=== PATIENT | female | born 1970 | race American Indian/Alaskan Native ===

== ENCOUNTER 2016-10-27 11:32 | Outpatient (CLI) | payer BC ==
--- NOTE | 2016-10-27 14:09 | Ultrasound Report ---
BILATERAL DIGITAL DIAGNOSTIC MAMMOGRAM and BILATERAL BREAST ULTRASOUND: 10/27/16 11:32:00 CLINICAL: Recalled for bilateral asymmetries and right calcifications. COMPARISON:08/05/16 screening FINDINGS: Left lateralmedial and spot compression MLO and CC views were performed and demonstrate persistent circumscribed upper asymmetries. ML and CC magnification views of the right breast were performed and demonstrate partial effacement of the previously described retroareolar asymmetry on the MLO view. Scattered punctate calcifications have benign morphology with no suspicious forms. Ultrasound of the right breast (including all four quadrants and the retroareolar area) was performed. A solid heterogeneous hypoechoic oval mass at 11 o'clock 5 cm from the nipple measures 1.4 x 0.6 x 1.3 cm and correlates with the asymmetry on the MLO view. An irregular intraductal mass is identified the retroareolar and measures 0.6 x 0.2 x 0.6 cm. A benign cyst at 8 o'clock 4 cm from the nipple measures 8 x 5 x 7 mm. A cluster of cysts at 9 o'clock 5 cm from the nipple measures 1.8 x 0.9 x 0.5 cm and contains a few calcifications. A benign cyst at 10 o'clock 6 cm from the nipple measures 1.0 x 0.6 x 1.5 cm. Ultrasound of the left breast (including all four quadrants and the retroareolar area) was performed and demonstrate three benign cysts and no solid mass. A septated cyst at 11 o'clock 4 cm from nipple measures 4.1 x 3.2 x 2.0 cm and correlates with the dominant mammographic density. A cyst at 12 o'clock 8 cm from the nipple measures 1.1 x 0.6 x 0.9 cm and a cyst at 11:30 o'clock 4 cm from the nipple measures 2.1 x 0.8 x 2.1 cm. IMPRESSION: 2 solid masses of the right breast. A smaller mass is intraductal and retroareolar and the larger mass is at 11 o'clock 5 cm from the nipple. Benign cysts of the left breast. BI-RADS CATEGORY: 4--Suspicious RECOMMENDATION: Ultrasound guided needle core biopsy of two right breast masses. I discussed the findings and the recommendation for needle core biopsy with the patient at the time of the examination. ACR BI-RADS MAMMOGRAPHIC CODES: 0 = Needs additional imaging evaluation; 1 = Negative; 2 = Benign; 3 = Probably benign; 4 = Suspicious; 5 = Malignant; 6 = Known biopsy-proven malignancy COMMENT: 1. Dense breast tissue, i.e., adenosis, fibrocystic changes, etc., may obscure an underlying neoplasm. 2. Approximately 10% of cancers are not detected with mammography. 3. A negative mammography report should not delay biopsy if a clinically suspicious mass is present. COMMENT: Patient follow-up letters are generated via our [employer] application.
== END 2016-10-27 11:33 | disposition home or self-care (01) ==
LOC: SPVWC 11:32
PROVIDERS: ATTEND Obstetrics & Gynecology
DX: N60.01 Solitary cyst of right breast (principal); N60.02 Solitary cyst of left breast; N63 Unspecified lump in breast
CPT/HCPCS: 76641; G0204; 77066

== ENCOUNTER 2016-11-08 08:39 | Outpatient (CLI) | payer BC ==
--- NOTE | 2016-11-08 10:40 | Mammography Report ---
RIGHT DIGITAL DIAGNOSTIC MAMMOGRAM: 11/08/16 08:39:00 CLINICAL: For clip placement immediately status post ultrasound biopsy at 2 sites. COMPARISON:10/27/16 FINDINGS: 2 biopsy clips correlate with the two biopsied lesions . IMPRESSION: Concordant clip placement status post ultrasound biopsy. BI-RADS CATEGORY: 4--Suspicious Pathology pending.
--- NOTE | 2016-11-08 11:19 | Ultrasound Report ---
VACUUM ASSISTED ULTRASOUND GUIDED NEEDLE CORE BIOPSY WITH CLIP PLACEMENT RETROAREOLAR RIGHT BREAST AND ULTRASOUND-GUIDED NEEDLE CORE BIOPSY 11 O'CLOCK RIGHT BREAST. : 11/08/16 08:39:00 CLINICAL: Retroareolar intraductal mass and a solid 1.4 cm mass at 11 o'clock 5 cm from the nipple. COMPARISON :10/27/16 FINDINGS: The procedure was explained to the patient and informed consent was obtained. Ultrasound demonstrated the previously described masses. The skin was prepped with chlorhexidine and anesthetized with 1% lidocaine. Ultrasound guided needle core biopsy was performed at 11 o'clock using 2% lidocaine with epinephrine for deep anesthesia and a 14-gauge Achieve biopsy device. Three cores were obtained and placed in formalin. A hydro-melba clip was placed within the mass. Vacuum-assisted retroareolar needle core biopsy was performed through a small dermatotomy using ultrasound guidance, 2% lidocaine with epinephrine for deep anesthesia and a 13-gauge Elite biopsy probe. Imaging demonstrated satisfactory sampling of the lesion. Multiple cores were obtained and placed in formalin. An 11-gauge Mammostar barbell shape clip was then placed at the site. Hemostasis was achieved with minimal pressure and a sterile dressings were applied. The patient tolerated the procedure well and there were no apparent complications. A two view mammogram demonstrated concordant clip placement at both sites. The patient left the department in good condition and was given instructions for wound care and follow up. IMPRESSION: Uncomplicated vacuum-assisted ultrasound core biopsy and clip placement in the retroareolar right breast and ultrasound guided needle core biopsy and clip placement at 11 o'clock right breast.
== END 2016-11-08 08:40 | disposition home or self-care (01) ==
LOC: SPVWC 08:39
PROVIDERS: ATTEND Obstetrics & Gynecology
DX: N63 Unspecified lump in breast (principal)
CPT/HCPCS: 19083; 19084; 88305; A4648; G0206

== ENCOUNTER 2017-03-21 15:06 | Outpatient (CLI) | payer BC ==
--- NOTE | 2017-03-21 16:23 | Mammography Report ---
Right mammogram and right breast ultrasound: Patient with recent biopsies in the lateral right breast and retroareolar location. Both lesions with benign results. Comparison is made to the post procedure mammogram. Biopsy markers are present and unchanged in positions. The breast pattern is heterogeneous. There is no clearly identifiable mass associated with either of the markers in the breast pattern is not substantially change from prior exam. Targeted ultrasound performed on the 2 biopsied lesions. In the 11:00 location 5 cm from the nipple there is a well demarcated and elongated inhomogeneously hypoechoic mass currently measuring 16.7 mm in greatest dimension. The biopsy marker is identified near the central portion of the mass. The previous measurement was 13.6 mm. 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 In the retroareolar region the biopsied lesion is somewhat more difficult to compare measurements. It has generally the same size and contour. This was benign papilloma. Impressions: 1. Apparent interval enlargement of the fibroadenoma at 11:00. 2. Seemingly stable retroareolar papilloma lesion. Recommendation: Followup ultrasound of 11:00 lesion in 6 months. BI-RADS CATEGORY: 3 = Probably benign ACR BI-RADS MAMMOGRAPHIC CODES: 0 = Needs additional imaging evaluation; 1 = Negative; 2 = Benign; 3 = Probably benign; 4 = Suspicious; 5 = Malignant; 6 = Known biopsy-proven malignancy COMMENT: 1. Dense breast tissue, i.e., adenosis, fibrocystic changes, etc., may obscure an underlying neoplasm. 2. Approximately 10% of cancers are not detected with mammography. 3. A negative mammography report should not delay biopsy if a clinically suspicious mass is present.
== END 2017-03-21 15:07 | disposition home or self-care (01) ==
LOC: SPVWC 15:06
PROVIDERS: ATTEND Surgery
DX: D24.1 Benign neoplasm of right breast (principal); N60.01 Solitary cyst of right breast; N64.89 Other specified disorders of breast
CPT/HCPCS: 76642; G0206

== ENCOUNTER 2017-08-08 10:32 | Outpatient (CLI) | payer BC ==
--- NOTE | 2017-08-08 11:50 | Mammography Report ---
BILATERAL DIGITAL SCREENING MAMMOGRAM with CAD : 08/08/17 10:32:00 CLINICAL: Routine screening.Status post right benign biopsy on 11/08/16 and history of left cysts. COMPARISON:10/27/16 FINDINGS: The breasts are heterogeneously dense, which may obscure small masses.A right retroareolar biopsy clip and a right outer upper biopsy clip. Stable right outer benign calcifications. No mass, architectural distortion or suspicious calcifications. IMPRESSION: No mammographic evidence of malignancy. BI-RADS CATEGORY: 2 -- Benign RECOMMENDATION: Routine mammographic screening in one year. COMMENT: Patient follow-up letters are generated by our [employer] application.
== END 2017-08-08 10:33 | disposition home or self-care (01) ==
LOC: SPVIMAG 10:32
PROVIDERS: ATTEND Surgery
DX: Z12.31 Encounter for screening mammogram for malignant neoplasm of breast (principal)
CPT/HCPCS: 77067; G0202

== ENCOUNTER 2021-03-31 14:18 | Outpatient (CLI) | payer BC ==
--- NOTE | 2021-04-02 13:42 | Mammography Report ---
DIGITAL SCREENING MAMMOGRAM WITH CAD, 03/31/2021 CLINICAL INFORMATION / INDICATION: Routine screening mammography. TECHNIQUE: Digital bilateral 2D and 3d tomosynthesis images in the craniocaudal and mediolateral obl ique projections. This examination was interpreted with the benefit of Computer-Aided Detection shahida sis. COMPARISON: 03/19/2020, 03/18/2019, 02/26/2018 FINDINGS: Breast Density: The breasts are heterogeneously dense, which may obscure small masses. No dominant mass, suspicious calcifications, or architectural distortion in either breast. Postsurgical scar is again noted in the right breast. IMPRESSION: No mammographic evidence of malignancy. Follow up recommendation: Routine yearly BI-RADS Category 2: Benign. A "normal" or negative report should not discourage follow up or biopsy of a clinically significant f inding. A written summary of these findings will be mailed to the patient. The patient will be entered into a mammography reporting system which will generate a reminder letter for the patient's next appointmen t at the appropriate interval. The [employer] recommends yearly mammograms starting at age 40 and continuing as l kerry as a woman is in good health. Breast MRI is recommended for women with an approximate 20-25% or greater lifetime risk of breast cancer, including women with a strong family history of breast or ova rosalva cancer or who have been treated for Hodgkin's disease. Signer Name: Trina Cain MD Signed: 04/02/2021 1:38 PM Workstation Name: [id number]
== END 2021-03-31 14:19 | disposition home or self-care (01) ==
LOC: SPVWC 14:18
PROVIDERS: ATTEND Surgery
DX: Z12.31 Encounter for screening mammogram for malignant neoplasm of breast (principal)
CPT/HCPCS: 77063; 77067